=== PATIENT | male | born 1975 | race Caucasian/White ===

== ENCOUNTER 2016-09-19 09:00 | Outpatient (CLI) | payer OTHER ==
[~2016-09-19] VITALS: Ht 177.8 cm; Wt 99.8 kg
[~2016-09-19 09:00] MED LIST: INSU100I14 SQ; INSU100V6 SQ; NF-ACI30T PO; PANT40TA2 PO; QUIN5TAB11 PO; SIMV40TA4 PO; SUCR1TAB36 PO
[2016-09-20] MEDS ORDERED: LOSA50TA36 PO ×2 (08:57)
[2016-09-20] MEDS ORDERED: SUCR1TAB36 PO ×2 (09:48)
== END 2016-09-19 09:43 ==
LOC: PREOP 09:00
PROVIDERS: ATTEND Surgery
DX: Z01.818 Encounter for other preprocedural examination (principal); R13.10 Dysphagia, unspecified; K21.9 Gastro-esophageal reflux disease without esophagitis

== ENCOUNTER 2016-09-20 08:19 | Day surgery (SDC) | payer OTHER ==
[~2016-09-20] VITALS: Ht 177.8 cm; Wt 99.8 kg
[~2016-09-20 08:19] MED LIST changes: -QUIN5TAB11 PO; +QUIN5TAB20 PO
[2016-09-20] MEDS ORDERED: LACTATED RINGERS 1,000 ML IV ONE (08:23)
[2016-09-20] MEDS ORDERED: PROPOFOL INJECTION 50 ML IV ONE (08:37)
[2016-09-20] MEDS ORDERED: MIDAZOLAM 2 MG/2 ML (VERSED) VIAL ONE (08:39)
[2016-09-20] MEDS ORDERED: LACTATED RINGERS 1,000 ML IV STA (08:40)
[2016-09-20] MEDS ORDERED: HURRICAINE EXT TUBE (BENZOCAINE) XX PRN (08:45)
[2016-09-20 08:47] VITALS: BP 145/91
[2016-09-20] MEDS ORDERED: LOSA50TA36 PO (08:57)
--- NOTE | 2016-09-20 09:47 | Progress Note-Post Operative ---
Post-Operative Progess Note Surgeon (s)/Supervisor [employer] (s) Surgeon VELVET NGUYEN DO Supervisor [employer]: na Pre-Operative Diagnosis gerd, dysphagia Post-Operative Diagnosis gastric polyps, small hiatal hernia, reflux esophagitis Procedure & Operative Findings Date of Procedure 09/20/16 Procedure Performed/Findings egd c bx antrum, hot bx polypectomy, bx ge junction Anesthesia Type per metallurgy laboratory technician Estimated Blood Loss Estimated blood loss (mL): scant Specimens/Packing Specimens Removed antrum, gastric polyp, ge junction VELVET NGUYEN DO Sep 20, 2016 09:47
[2016-09-20] MEDS ORDERED: SUCR1TAB36 PO (09:48)
--- NOTE | 2016-09-20 09:49 | Discharge Inst-Simple/Standard ---
Discharge Inst-Standard Discharge Medications New, Converted or Re-Newed RX: RX on Chart Patient Instructions/Follow Up Plan of Care/Instructions/FU: 3 weeks [place] Activity as Tolerated: Yes Discharge Diet: Regular Diet Other Inst to Patient Symptoms to Report: Appetite Changes, Extremity Discoloration, Numbness/Tingling, Swelling Increased , Bleeding Excessive, Eyesight Changes, Pain Increased, Urine Color Change, Constipation(Persistent), Fever over 101 degree F, Pain/Pressure in chest, Urinating Difficulty, Cough Up/Vomit Blood, Heart Beat Irreg/Pounding, Pain/ Pressure in jaw, Vaginal Bleeding Increase, Cramps in feet or legs, Lightheadedness, Pain/Pressure in shoulder, Diarrhea(Persistent), Memory Changes Suddenly, Questions/Concerns, Weight gain consecutive days, Dizziness/ Fainting, Nausea/Vomiting, Shortness of Breath, Weight gain over 2 pounds If questions or concerns contact your physician Or seek help at emergency department. VELVET NGUYEN DO Sep 20, 2016 09:49
[2016-09-20 09:55] VITALS: BP 129/81
[2016-09-20 10:30] VITALS: BP 122/78
[2016-09-20 10:35] VITALS: BP 122/78
--- NOTE | 2016-09-20 14:59 | OPERATIVE REPORT ---
PROCEDURE PHYSICIAN: VELVET GO DATE OF PROCEDURE: 09/20/2016 PREOPERATIVE DIAGNOSES: 1. Dysphagia. 2. GERD. POSTOPERATIVE DIAGNOSES: 1. Gastric polyp. 2. Small hiatal hernia. 3. Reflux esophagitis. PROCEDURE: EGD with biopsy of the antrum with hot biopsy polypectomy and biopsy of the GE junction. SURGEON: Dr. Go. ANESTHESIA: Per AUDIO VISUAL COORDINATOR. ESTIMATED BLOOD LOSS: Scant. INDICATIONS: The patient is a 41-year-old male with some difficulty swallowing. This has improved after increasing his Protonix. He understands the risks and benefits of the procedure and wished to proceed with procedure. Consent was signed on the chart. PROCEDURE: The patient was taken to the endoscopy suite, placed in left lateral recumbent position. Timeout was performed. The scope was inserted into the mouth, down the esophagus, stomach and into the duodenum without any difficulty. There were no polyps, masses, or ulcerations within the duodenum. The scope was slowly retracted back into the stomach where it was further insufflated, noting several small polyps, one was a little bit larger; therefore, hot biopsy polypectomy was performed. The scope was then continued to be slowly retracted back and retroflexed noting a small hiatal hernia. No other pathology noted. The scope was returned its normal position, slowly withdrawn back into the distal esophagus, noting some erythematous changes consistent with reflux esophagitis. Biopsy this area was obtained. The scope was then slowly retracted back noting no other pathology until completely removed. The patient tolerated the procedure well without complications and taken to the recovery room in stable condition. RECOMMENDATIONS: The patient will continue his current medications. We will add Carafate 1 gram 4 times a day. We will have him follow-up in the office in 3 weeks to discuss pathology and see how his symptoms are doing at that time. Job ID: [id number] Dictated Date: 09/20/2016 09:52:24 Director Of Market Intelligence Date: 09/20/2016 14:50:50 / francisco
== END 2016-09-20 09:55 | disposition home or self-care (01) ==
LOC: ENDO 08:19
PROVIDERS: ATTEND Surgery
DX: K21.0 Gastro-esophageal reflux disease with esophagitis (principal); K44.9 Diaphragmatic hernia without obstruction or gangrene; K29.50 Unspecified chronic gastritis without bleeding; K31.7 Polyp of stomach and duodenum; I10 Essential (primary) hypertension; E78.00 Pure hypercholesterolemia, unspecified; E11.9 Type 2 diabetes mellitus without complications; Z79.4 Long term (current) use of insulin

== ENCOUNTER → 2016-12-12 | Outpatient (CLI) | payer OTHER ==
[~2016-12-12] MED LIST changes: +LOSA50TA36 PO
== END ==
LOC: RAD 10:27
PROVIDERS: ATTEND Internal Medicine Cardiovascular Disease
DX: R06.02 Shortness of breath (principal); R94.31 Abnormal electrocardiogram [ECG] [EKG]; I10 Essential (primary) hypertension; E13.9 Other specified diabetes mellitus without complications; Z82.49 Family history of ischemic heart disease and other diseases of the circulatory system
CPT/HCPCS: 93306

== ENCOUNTER → 2016-12-14 | Outpatient (CLI) | payer OTHER | LOC: CARD 13:33 | PROVIDERS: ATTEND Internal Medicine Cardiovascular Disease | DX: R06.02 Shortness of breath (principal); R94.31 Abnormal electrocardiogram [ECG] [EKG]; I10 Essential (primary) hypertension; E11.9 Type 2 diabetes mellitus without complications; Z82.49 Family history of ischemic heart disease and other diseases of the circulatory system | CPT/HCPCS: 93017 ==

== ENCOUNTER → 2022-09-29 | Outpatient (CLI) | payer OTHER ==
[~2022-09-29] MED LIST changes: -LOSA50TA36 PO; +LOSA50TA63 PO; -QUIN5TAB20 PO; +QUIN5TAB26 PO; +SIMV40TA25 PO; -SIMV40TA4 PO
--- NOTE | 2022-09-29 14:20 | Diagnostic Imaging Report ---
INDICATION: Dysuria, pain. FINDINGS: No opaque calculi projecting over the renal shadows. Left pelvic calcification measuring 3 to 4 mm may be vascular or distal left ureteral stone in the appropriate clinical scenario. Bowel gas pattern is normal. No abnormal fecal loading. IMPRESSION: Small left pelvic calcification may be vascular or distal ureteral stone. No radiodense kidney calcifications with a nonobstructive bowel gas pattern. Dictated by: Dictated on workstation # [id number]
== END ==
LOC: RAD 14:01
PROVIDERS: ATTEND Physician Assistant
DX: R30.0 Dysuria (principal); R10.9 Unspecified abdominal pain
CPT/HCPCS: 74018